=== PATIENT | female | born 1980 | race Caucasian/White ===

== ENCOUNTER → 2019-01-31 | Outpatient (CLI) | payer BC ==
[~2019-01-31] MED LIST: AMLO5TAB4 PO; ASCO100T6 PO; ASPI-999 PO; ENOX40DI13 SQ; ERGO400C PO; OMEP20TA33 PO; PREN1TAB86 PO
== END ==
LOC: LABNPT 09:53
PROVIDERS: ATTEND Obstetrics & Gynecology
DX: O28.8 Other abnormal findings on antenatal screening of mother (principal)
CPT/HCPCS: 82570; 84156

== ENCOUNTER → 2020-04-17 | Outpatient (CLI) | payer BC | LOC: LABNPT 08:16 | PROVIDERS: ATTEND Family Medicine | DX: R05 Cough (principal); R43.8 Other disturbances of smell and taste; Z20.822 Contact with and (suspected) exposure to COVID-19 | CPT/HCPCS: 87804; U0002; 87635 ==

== ENCOUNTER → 2020-10-01 | Outpatient (CLI) | payer BC ==
[~2020-10-01] MED LIST changes: +FAMO-119 PO; +NF-VITD400 PO; +OMG1KC PO
== END ==
LOC: LABNPT 08:30
PROVIDERS: ATTEND Family Medicine
DX: Z20.822 Contact with and (suspected) exposure to COVID-19 (principal)
CPT/HCPCS: 87635

== ENCOUNTER 2020-10-02 18:10 | Emergency (ER) | payer BC ==
[~2020-10-02] VITALS: Ht 167.7 cm; Wt 80.9 kg
[~2020-10-02 18:10] MED LIST changes: -FAMO-119 PO; -NF-VITD400 PO; -OMG1KC PO
[2020-10-02 18:49] LABS: BASOPHILS # (AUTO) 0.1 10^3/uL (0.0-0.1); BASOPHILS % (AUTO) 1 % (0-10); EOSINOPHILS % (AUTO) 0 % (0-10); HEMATOCRIT 41 % (35-52); HEMOGLOBIN 14.3 g/dL (11.5-16.0); LYMPHOCYTES % (AUTO) 29 % (12-44); MEAN CORPUSCULAR HEMOGLOBIN 32 pg (25-34); MEAN CORPUSCULAR HGB CONC 35 g/dL (32-36); MEAN CORPUSCULAR VOLUME 91 fL (80-99); MEAN PLATELET VOLUME 9.7 fL (9.0-12.2); MONOCYTES # (AUTO) 0.7 10^3/uL (0.0-1.0); MONOCYTES % (AUTO) 7 % (0-12); NEUTROPHILS # (AUTO) 6.5 10^3/uL (1.8-7.8); NEUTROPHILS % (AUTO) 63 % (42-75); PLATELET COUNT 276 10^3/uL (130-400); WHITE BLOOD COUNT 10.4 10^3/uL (4.3-11.0)
[2020-10-02 18:52] LABS: ALBUMIN 4.6 GM/DL (3.2-4.5); CHLORIDE 104 MMOL/L (98-107); POTASSIUM 3.8 MMOL/L (3.6-5.0); SODIUM 140 MMOL/L (135-145)
[2020-10-02 18:53] LABS: CALCIUM 9.6 MG/DL (8.5-10.1)
[2020-10-02 18:54] LABS: GLUCOSE 115 MG/DL (70-105)
[2020-10-02 18:55] LABS: TOTAL PROTEIN 7.5 GM/DL (6.4-8.2)
[2020-10-02 18:56] LABS: BILIRUBIN,TOTAL 0.6 MG/DL (0.1-1.0); CARBON DIOXIDE 22 MMOL/L (21-32)
[2020-10-02 18:58] LABS: ALKALINE PHOSPHATASE 79 U/L (40-136); CREATININE SERUM 0.84 MG/DL (0.60-1.30); GFR ESTIMATED 76
[2020-10-02 18:59] LABS: BUN/CREATININE RATIO 12; FIBRIN DEGRADATION PRODUCTS 0.35 UG/ML (0.00-0.49); PROTHROMBIN TIME PATIENT 13.6 SEC (12.2-14.7)
[2020-10-02 19:01] LABS: ALANINE AMINOTRANSFERASE 22 U/L (0-55)
--- NOTE | 2020-10-02 19:06 | ED Neurological Problem ---
General Chief Complaint: Neurological Problems Stated Complaint: LIPS NUMB, TONGUE NUMB Nursing Triage Note: AMB TO ROOM C/O CHRONIC CHEST PAIN FOR APX 2 WEEKS HAS HAD NUMBNESS IN TONGUE AND LIPS FOR 2 WEEKS TEARFUL STATES AT AGE OF 34 HAD STROKE THAT AFFECTED HER VSION. IS ALSO TO HAVE GALLBLADDER SONO FOR HER CHEST PAIN THAT IS ONGOING. Source: patient Exam Limitations: no limitations History of Present Illness Date Seen by Provider: Oct 02, 2020 Allergies and Home Medications Allergies Coded Allergies: No Known Drug Allergies (Unverified , 09/27/15) Home Medications Amlodipine Besylate 5 Mg Tablet, 5 MG PO DAILY, (Reported) Ascorbic Acid 100 Mg Tablet, 100 MG PO DAILY, (Reported) Aspirin 81 Mg Tab.chew, 81 MG PO DAILY, (Reported) Cholecalciferol (Vitamin D3) 400 Unit Capsule, 400 UNIT PO DAILY, (Reported) Enoxaparin Sodium 40 Mg/0.4 Ml Syringe, 40 MG SQ DAILY, (Reported) Omeprazole Magnesium 20 Mg Tablet.dr, 20 MG PO DAILY PRN for INDIGESTION, (Reported) Vit W-Ca,Fe,FA(<1 mg) 1 Each Tablet, 1 EACH PO DAILY, (Reported) Past Dinewkf-Nendup-Upecaz Hx Patient Social History Tobacco Use?: No Substance use?: No Alcohol Use?: Yes Alcohol Frequency: Rarely Immunizations Up To Date Influenza Vaccine Up-to-Date: Yes; Up-to-Date First/Initial COVID19 Vaccinat: 05/22 Second COVID19 Vaccination Dean: 06/20 Physical Exam Vital Signs Vital Signs - First Documented 10/02/20 18:10 Temp 36.0 Pulse 87 Resp 18 B/P (MAP) 153/102 (119) Pulse Ox 100 O2 Delivery Room Air Capillary Refill : Less Than 3 Seconds Height, Weight, BMI Height: '" Weight: lbs. oz. kg; 28.00 BMI Method: Stroke NIH Stroke Scale Assessment LOC Commands: 0=Performs both tasks (0), Visual Zamora: 0=No visual loss (0), Facial Movement (Facial Paresis): 0=Normal symmetrical mnt (0), Motor Function-Arms Right: 0=No drift (0), Motor Function-Arms Left: 0=No drift (0), Motor Function-Legs Right: 0=No drift (0), Motor Function-Legs Left: 0=No drift (0), Limb Ataxia: 0=Absent (0), Sensory: 1=Mild to Moderate loss (1), Best Language: 0=No aphasia (0), Dysarthria: 0=Normal (0), Extinction & Inattention: 0=No abnormality (0), Total: Progress/Results/Core Measures Results/Orders Lab Results Laboratory Tests Test 10/02/20 18:27 10/02/20 19:01 10/02/20 19:06 Range/Units White Blood Count 10.4 4.3-11.0 10^3/uL Red Blood Count 4.51 3.80-5.11 10^6/uL Hemoglobin 14.3 11.5-16.0 g/dL Hematocrit 41 35-52 % Mean Corpuscular Volume 91 80-99 fL Mean Corpuscular Hemoglobin 32 25-34 pg Mean Corpuscular Hemoglobin Concent 35 32-36 g/dL Red Cell Distribution Width 11.5 10.0-14.5 % Platelet Count 276 130-400 10^3/uL Mean Platelet Volume 9.7 9.0-12.2 fL Immature Granulocyte % (Auto) 0 % Neutrophils (%) (Auto) 63 42-75 % Lymphocytes (%) (Auto) 29 12-44 % Monocytes (%) (Auto) 7 0-12 % Eosinophils (%) (Auto) 0 0-10 % Basophils (%) (Auto) 1 0-10 % Neutrophils # (Auto) 6.5 1.8-7.8 10^3/uL Lymphocytes # (Auto) 3.0 1.0-4.0 10^3/uL Monocytes # (Auto) 0.7 0.0-1.0 10^3/uL Eosinophils # (Auto) 0.0 0.0-0.3 10^3/uL Basophils # (Auto) 0.1 0.0-0.1 10^3/uL Immature Granulocyte # (Auto) 0.0 0.0-0.1 10^3/uL Prothrombin Time 13.6 12.2-14.7 SEC INR Comment 1.0 0.8-1.4 Activated Partial Thromboplast Time 30 24-35 SEC D-Dimer 0.35 0.00-0.49 UG/ML Sodium Level 140 135-145 MMOL/L Potassium Level 3.8 3.6-5.0 MMOL/L Chloride Level 104 98-107 MMOL/L Carbon Dioxide Level 22 21-32 MMOL/L Anion Gap 14 5-14 MMOL/L Blood Urea Nitrogen 10 7-18 MG/DL Creatinine 0.84 0.60-1.30 MG/DL Estimat Glomerular Filtration Rate 76 BUN/Creatinine Ratio 12 Glucose Level 115 H 70-105 MG/DL Calcium Level 9.6 8.5-10.1 MG/DL Corrected Calcium 8.5-10.1 MG/DL Total Bilirubin 0.6 0.1-1.0 MG/DL Aspartate Amino Transf (AST/SGOT) 17 5-34 U/L Alanine Aminotransferase (ALT/SGPT) 22 0-55 U/L Alkaline Phosphatase 79 40-136 U/L Troponin I < 0.028 <0.028 NG/ML Total Protein 7.5 6.4-8.2 GM/DL Albumin 4.6 H 3.2-4.5 GM/DL Urine Color YELLOW Urine Clarity CLEAR Urine pH 6.0 5-9 Urine Specific Ransom <=1.005 1.016-1.022 Urine Protein NEGATIVE NEGATIVE Urine Glucose (UA) NEGATIVE NEGATIVE Urine Ketones NEGATIVE NEGATIVE Urine Nitrite NEGATIVE NEGATIVE Urine Bilirubin NEGATIVE NEGATIVE Urine Urobilinogen 0.2 < = 1.0 MG/DL Urine Leukocyte Esterase NEGATIVE NEGATIVE Urine RBC (Auto) NEGATIVE NEGATIVE Urine RBC NONE /HPF Urine WBC NONE /HPF Urine Squamous Epithelial Cells 2-5 /HPF Urine Crystals NONE /LPF Urine Bacteria TRACE /HPF Urine Casts NONE /LPF Urine Mucus NEGATIVE /LPF Urine Culture Indicated NO Glucometer 101 70-110 MG/DL My Orders Orders - JUAN WINTERS SILK SCREEN LAYOUT DRAFTER Cbc With Automated Diff (10/02/20 18:40) Protime With Inr (10/02/20 18:40) Partial Thromboplastin Time (10/02/20 18:40) Comprehensive Metabolic Panel (10/02/20 18:40) Fibrin Degradation Products (10/02/20 18:40) Troponin I (10/02/20 18:40) Ua Culture If Indicated (10/02/20 18:40) Ekg Tracing (10/02/20 18:40) Accucheck Stat ONCE (10/02/20 18:40) Ed Iv/Invasive Line Start (10/02/20 18:40) Vital Signs Stroke Patient Q15M (10/02/20 18:40) Ct Head Wo-R/O Stroke (10/02/20 18:40) O2 (10/02/20 18:40) Monitor-Rhythm Ecg Trace Only (10/02/20 18:40) Dysphagia Screening Tool (10/02/20 18:40) Ct Angio Head/Neck (10/02/20 19:43) Iohexol Injection (Omnipaque 350 Mg/Ml 1 (10/02/20 20:30) Received Contrast (Hold Metformin- Contr (10/02/20 20:30) Ns (Ivpb) (Sodium Chloride 0.9% Ivpb Bag (10/02/20 20:30) Medications Given in ED Current Medications Medications Dose Ordered Sig/Josseline Route Start Time Stop Time Status Last Admin Dose Admin Iohexol 100 ml ONCE ONCE IV 10/02/20 20:30 10/02/20 20:31 DC 10/02/20 20:35 75 ML Sodium Chloride 100 ml ONCE ONCE IV 10/02/20 20:30 10/02/20 20:31 DC 10/02/20 20:35 80 ML Vital Signs/I&O 10/02/20 18:10 Temp 36.0 Pulse 87 Resp 18 B/P (MAP) 153/102 (119) Pulse Ox 100 O2 Delivery Room Air Blood Pressure Mean: 119 Departure Communication (Admissions) Time/Spoke to Consulting Phy: 19:[address] Lang with cardiology. As patient is not having any active chest pain or shortness of breath, this unlikely represents STEMI. Would like troponin completed. Impression Primary Impression: Numbness and tingling Disposition: 01 HOME, SELF-CARE Condition: Stable Departure-Patient Inst. Decision time for Depature: 21:53 Referrals: NO,LOCAL PHYSICIAN (PCP/Family) Primary Care Physician Patient Instructions: Lowering the Risk of Having Another Stroke, Right-Side Stroke (DC) Add. Discharge Instructions: Plan: 1. Follow up with neurology. Please call Dr. Benitez office tomorrow for follow up. 2. Return to ER if you develop any new, concerning, or worsening symptoms. All discharge instructions reviewed with patient and/or family. Voiced understanding. JUAN WINTERS SILK SCREEN LAYOUT DRAFTER Oct 02, 2020 19:06
--- NOTE | 2020-10-02 19:08 | Diagnostic Imaging Report ---
PROCEDURE: CT head wo r/o stroke. TECHNIQUE: Multiple contiguous axial images were obtained through the brain without the use of intravenous contrast. Auto Exposure Controls were utilized during the CT exam to meet ALARA standards for radiation dose reduction. INDICATION: Numbness and tingling COMPARISON: None. FINDINGS: There is no mass, shift of the midline or hemorrhage to suggest an acute intracranial abnormality. The ventricles are not abnormally dilated. The bone windows show no evidence for a fracture or for a destructive lesion. The orbits and sinuses, where visualized, are unremarkable for an acute abnormality. IMPRESSION: 1. There is no evidence for an acute intracranial abnormality. 2. If clinical concern regarding an underlying abnormality persists, then MRI would be recommended for further study. Dictated by: Dictated on workstation # [id number]
[2020-10-02 19:13] LABS: BILIRUBIN,URINE NEGATIVE (NEGATIVE); CLARITY,URINE CLEAR; COLOR,URINE YELLOW; GLUCOSE, URINE (UA) NEGATIVE (NEGATIVE); KETONES,URINE NEGATIVE (NEGATIVE); LEUKOCYTE ESTERASE ,URINE NEGATIVE (NEGATIVE); NITRITE,URINE NEGATIVE (NEGATIVE); PROTEIN,URINE NEGATIVE (NEGATIVE)
[2020-10-02 19:54] LABS: BACTERIA,URINE TRACE /HPF
[2020-10-02] MEDS ORDERED: HOLD METFORMIN - RECEIVED CONTRAST 20 ML VIAL IV SCH (20:30)
[2020-10-02] MEDS ORDERED: IOHEXOL 350 MG/ML 100 ML (OMNIPAQUE 350) VIAL IV ONE (20:30)
[2020-10-02] MEDS ORDERED: NS 100 ML (IVPB) BAG IV ONE (20:30)
--- NOTE | 2020-10-02 20:56 | Diagnostic Imaging Report ---
PROCEDURE: CT angiography of the head and CT angiography of the neck with and without contrast. TECHNIQUE: Contiguous noncontrast images were obtained from the skull base through the vertex. After intravenous contrast administration, helical CT angiography of the neck was performed. Source data was reformatted into 3D MIP projections. Delayed post contrast acquisition was also obtained. Auto Exposure Controls were utilized during the CT exam to meet ALARA standards for radiation dose reduction. INDICATION: Numbness and tingling COMPARISON: None. FINDINGS: The visualized arch anatomy is unremarkable. The bilateral common carotid, internal carotid and vertebral arteries are intact. The left vertebral artery is dominant. The right vertebral artery ends in PICA. There was no dissection or atherosclerotic disease. The [place] is grossly unremarkable. No large vessel occlusion is seen. There is no aneurysm or AVM. Venous structures are grossly intact. There is no abnormal enhancement or mass. IMPRESSION: Negative CT angiogram neck and brain. Dictated by: Dictated on workstation # [id number]
[2020-10-02 22:16] VITALS: BP 138/98
[2020-10-03] MEDS ORDERED: OMG1KC PO (10:41)
[2020-10-03] MEDS ORDERED: NF-VITD400 PO (10:41)
[2020-10-03] MEDS ORDERED: FAMO-119 PO (10:41)
== END 2020-10-02 22:13 | disposition home or self-care (01) ==
LOC: EDUNIT# 18:10 → ER 18:12
DX: R20.0 Anesthesia of skin (principal); R20.2 Paresthesia of skin; Z79.82 Long term (current) use of aspirin; Z79.01 Long term (current) use of anticoagulants
CPT/HCPCS: 36415; 70450; 70496; 70498; 80053; 81000; 82947; 84484; 85025; 85379; 85610; 85730; 93005; 93041

== ENCOUNTER → 2020-10-03 | Outpatient (CLI) | payer BC ==
[~2020-10-03] MED LIST changes: +FAMO-119 PO; +NF-VITD400 PO; +OMG1KC PO
--- NOTE | 2020-10-03 11:08 | Diagnostic Imaging Report ---
PROCEDURE: US Gallbladder. TECHNIQUE: Multiple real-time grayscale images were obtained over the right upper quadrant in various projections. INDICATION: Right upper quadrant pain. FINDINGS: The liver is normal. There is 1 cm mobile gallstone in the gallbladder. The wall is not thickened. The bile ducts are not dilated. The pancreas, aorta and IVC are normal. The right kidney is normal. There is no ascites. IMPRESSION: Cholelithiasis. No acute abnormality is seen. Dictated by: Dictated on workstation # [id number]
== END ==
LOC: RAD 08:55
PROVIDERS: ATTEND Surgery
DX: K80.20 Calculus of gallbladder without cholecystitis without obstruction (principal)
CPT/HCPCS: 76705

== ENCOUNTER 2020-10-09 05:31 | Outpatient (RCR) | payer BC ==
[~2020-10-09] VITALS: Ht 167.7 cm; Wt 81.4 kg
== END 2020-10-09 08:27 | disposition home or self-care (01) ==
LOC: PREOP 05:31
PROVIDERS: ATTEND Surgery
DX: Z01.812 Encounter for preprocedural laboratory examination (principal); K21.9 Gastro-esophageal reflux disease without esophagitis; Z20.822 Contact with and (suspected) exposure to COVID-19
CPT/HCPCS: 87635

== ENCOUNTER 2020-10-11 09:53 | Day surgery (SDC) | payer BC ==
[~2020-10-11] VITALS: Ht 167.7 cm; Wt 81.4 kg
[2020-10-11] MEDS ORDERED: LACTATED RINGERS 1,000 ML IV ONE (09:55)
[2020-10-11] MEDS ORDERED: LACTATED RINGERS 1,000 ML IV STA (09:56)
[2020-10-11] MEDS ORDERED: HURRICAINE EXT TUBE (BENZOCAINE) XX PRN (10:00)
[2020-10-11 10:15] VITALS: BP 132/91
[2020-10-11] MEDS ORDERED: MIDAZOLAM 2 MG/2 ML (VERSED) VIAL ONE (10:55)
[2020-10-11] MEDS ORDERED: proPOfol 200 MG/20 ML (DIPRIVAN) VIAL IV ONE (10:55)
--- NOTE | 2020-10-11 10:56 | Progress Note-Pre Operative ---
Pre-Operative Progress Note H&P Reviewed The H&P was reviewed, patient examined and no changes noted. Time Seen by Provider: 10:53 Date H&P Reviewed: Oct 11, 2020 Time H&P Reviewed: 10:53 Pre-Operative Diagnosis: Chronic Gastritis, Dysphagia TIMOTHY CAREDNAS DO Oct 11, 2020 10:56
[2020-10-11 11:10] VITALS: BP_SYST 120; BP_SYST 122; BP_DIAS 63; BP_DIAS 78
--- NOTE | 2020-10-11 11:12 | Progress Note-Post Operative ---
Post-Operative Progess Note Surgeon (s)/Technical Writer And Editor (s) Surgeon TIMOTHY CARDENAS DO Technical Writer And Editor: none Pre-Operative Diagnosis Chronic Gastritis, Dysphagia Post-Operative Diagnosis Gastritis Esophagitis ??small sliding hiatal hernia Procedure & Operative Findings Date of Procedure 10/11/20 Procedure Performed/Findings PROCEDURE NOTE: After informed consent was obtained, the patient was brought to the endoscopy suite, placed in bed in left lateral decubitus position. She was administered IV sedation by the ECHO TECHNOLOGIST who then monitored vitals the entire time, heart rate, blood pressure and pulse ox and the scope was inserted down the mouth through the esophagus into the stomach. On the way down, noted some mild esophagitis, took a picture, pushed into the stomach, pushed past the antrum into the duodenum. Duodenum looked good. Pulled back and did a biopsy of antrum, then retroflexed the scope, saw very small sliding hiatal hernia, took a picture of this and then did a biopsy of the body of the stomach. Next pulled the scope into the GE junction, took another picture and saw some changes of the Z-line; definite Esophagitis and possible Osuna's. Then did a biopsy of the GE junction. Pushed the scope back into the stomach, suctioned all the air out of the stomach. At this point pulled the scope up the esophagus and out the mouth. The patient tolerated the procedure, and she recovered in endoscopy suite. Anesthesia Type IV sedation by ECHO TECHNOLOGIST Estimated Blood Loss Estimated blood loss (mL): scant Specimens/Packing Specimens Removed antral bx body of stomach bx GE jxn bx x 2 TIMOTHY CARDENAS DO Oct 11, 2020 11:12
--- NOTE | 2020-10-11 11:13 | Endoscopy Discharge Instruct ---
Endo Procedure/Findings Findings 1.: Gastritis 2.: Hiatal Hernia (very small) 3.: Other Findings (Esophagitis, maybe even Osuna's) Discharge Instructions - Activity: You might feel a little sleepy until tomorrow. This is due to the medicine you received to relax you. Until tomorrow, you should: NOT drive a car, operate machinery or power tools. NOT drink any alcoholic beverages. NOT make any important decisions or sign importortant papers. Do not return to work until tomorrow, unless otherwise instructed. Resume previous activities tomorrow. Diet: Start by taking liquids. If you tolerate liquids, advance to solid food. 1.: EGD in 1 year Notify Physician - If you experience excessive bleeding, unusual abdominal pain, fever, or chest pain, contact your doctor immediately. TIMOTHY CARDENAS DO Oct 11, 2020 11:13
[2020-10-11 11:15] VITALS: BP 123/76
[2020-10-11 11:25] VITALS: BP 123/76
[2020-10-11 11:40] VITALS: BP 125/80
== END 2020-10-11 11:42 | disposition home or self-care (01) ==
LOC: ENDO 09:53
PROVIDERS: ATTEND Surgery
DX: K29.50 Unspecified chronic gastritis without bleeding (principal); K21.00 Gastro-esophageal reflux disease with esophagitis, without bleeding; K44.9 Diaphragmatic hernia without obstruction or gangrene; Z79.899 Other long term (current) drug therapy; Z79.82 Long term (current) use of aspirin
CPT/HCPCS: 84703

== ENCOUNTER → 2021-10-16 | Outpatient (CLI) | payer BC ==
--- NOTE | 2021-10-16 13:25 | Diagnostic Imaging Report ---
INDICATION: Routine screening. COMPARISON: No prior mammograms are available for comparison. This is a baseline study. TECHNIQUE: 2D and 3D bilateral screening mammography was performed with CAD. FINDINGS: Both breasts are heterogeneously dense, limiting the sensitivity of mammography. No mass or malignant-appearing microcalcifications are seen. The axillae are unremarkable. IMPRESSION: No mammographic features suspicious for malignancy are identified. ACR BI-RADS Category 1: Negative. Result letter will be mailed to the patient. Note: At least 10% of breast cancer is not imaged by mammography. Dictated by: Dictated on workstation # [id number]
== END ==
LOC: RAD 11:25
PROVIDERS: ATTEND Nurse Practitioner Family
DX: Z12.31 Encounter for screening mammogram for malignant neoplasm of breast (principal)
CPT/HCPCS: 77063; 77067

== ENCOUNTER → 2022-10-19 | Outpatient (CLI) | payer BC ==
--- NOTE | 2022-10-19 10:34 | Diagnostic Imaging Report ---
INDICATION: Routine screening. COMPARISON: 10/16/2021. TECHNIQUE: 2D and 3D bilateral screening mammography was performed with CAD. FINDINGS: Both breasts are heterogeneously dense, limiting the sensitivity of mammography. No mass or malignant-appearing microcalcifications are seen. The axillae are unremarkable. IMPRESSION: No mammographic features suspicious for malignancy are identified. ACR BI-RADS Category 1: Negative. Result letter will be mailed to the patient. Note: At least 10% of breast cancer is not imaged by mammography. Dictated by: Dictated on workstation # [id number]
== END ==
LOC: RAD 07:58
PROVIDERS: ATTEND Family Medicine
DX: Z12.31 Encounter for screening mammogram for malignant neoplasm of breast (principal)
CPT/HCPCS: 77063; 77067